=== PATIENT | female | born 1995 | race African-American/Black ===

== ENCOUNTER 2017-04-08 18:37 | Emergency (ER) | payer SELFPAY ==
[~2017-04-08] VITALS: Ht 177.8 cm; Wt 65.0 kg
[2017-04-08] MEDS ORDERED: SODIUM CHLORIDE FLUSH 10ML SYR IVF ONE (19:00)
[2017-04-08] MEDS ORDERED: SODIUM CHLORIDE 0.9% 1,000ML IVBOLUS ONE (19:00)
[2017-04-08 19:41] LABS: ASPARTATE AMINO TRANSFERASE 18 U/L (15-37); BLOOD UREA NITROGEN 7 mg/dL (7-18)
[2017-04-08 20:08] VITALS: BP 100/66
[2017-04-08] MEDS ORDERED: POTASSIUM CHLORIDE 20 MEQ TAB.ER.PRT ONE (20:15)
[2017-04-08] MEDS ORDERED: POTASSIUM CHLORIDE 20 MEQ TAB.ER.PRT PO ONE (20:30)
== END 2017-04-08 21:02 | disposition home or self-care (01) ==
LOC: ED 20:55
DX: R10.30 Lower abdominal pain, unspecified (principal); R11.2 Nausea with vomiting, unspecified; R42 Dizziness and giddiness
CPT/HCPCS: 36415; 80053; 84703; 85025; 93005; 96360; 99285; J7030